=== PATIENT | male | born 1965 | race American Indian/Alaskan Native ===

== ENCOUNTER 2020-03-07 08:18 | Observation (INO) | payer OTHER ==
[2020-03-07] VITALS (19 sets, daily range): BP systolic 126–161; BP diastolic 78–101
[~2020-03-07] VITALS: Ht 172.7 cm; Wt 92.7 kg
[~2020-03-07 08:18] MED LIST: ATRIN INH; CHOL20004 PO; FLO0.4C PO; LEVA15HF4 INH; LISI-600 PO; MELO-102 PO; MIRT15TA PO; MOME13HF2 INH; MULT-1085 PO; ceFAZolin 2gm in dextrose, iso 50 ML IV ONE; famotidine 20mg tablet PO ONE; ringers solution, lacted 1,000 ML IV SCH; tranexamic acid inj. 1,000 MG in normal saline 100 ML IV ONE; vancomycin 1,500 MG in NS 300ml IV soln IV ONE
[2020-03-07] MEDS ORDERED: labetalol 20mg/4ml (5mg/ml) syringe IV PRN (12:00)
[2020-03-07] MEDS ORDERED: ringers solution, lacted 1,000 ML IV SCH (12:00)
[2020-03-07] MEDS ORDERED: fentaNYL/PF 50MCG/1 ML 2ML syringe IV PRN (12:00)
[2020-03-07] MEDS ORDERED: hydrALAZINE 20mg/ml inj. IV PRN (12:00)
[2020-03-07] MEDS ORDERED: ondansetron/PF 4mg/2ml inj IV PRN ×2 (12:00→14:45)
[2020-03-07] MEDS ORDERED: ROPIVAcaine 0.2% (10 MG/5 ML) BOLUS INJECTION ADDCANAL PRN (12:00)
[2020-03-07] MEDS ORDERED: morphine 2 MG/ML inj. syringe IV PRN (12:00)
[2020-03-07] MEDS ORDERED: ketorolac trometh. 30mg/ml inj. ONE (12:53)
[2020-03-07] MEDS ORDERED: epiNEPHrine 1 mg/ml inj ONE (12:53)
[2020-03-07] MEDS ORDERED: morphine 4 MG/ML inj SYRINge ONE (12:54)
[2020-03-07] MEDS ORDERED: vancomycin 1,000mg inj ONE (12:54)
[2020-03-07] MEDS ORDERED: ROPIVAcaine 0.5% (5mg/ml) 30ml vial ONE ×2 (12:54→14:15)
[2020-03-07] MEDS ORDERED: morphine 10mg/ml inj. ONE ×2 (12:56→12:57)
[2020-03-07] MEDS ORDERED: MIDAZolam 5mg/5ml vial ONE (13:00)
[2020-03-07] MEDS ORDERED: fentaNYL /PF 50mcg/ml 5ml ampule ONE (13:00)
[2020-03-07] MEDS ORDERED: propofol inj 20 ML IV ONE (13:01)
[2020-03-07] MEDS ORDERED: LIDOcaine 2% (20mg/ml) 5ml vial ONE (13:01)
[2020-03-07] MEDS ORDERED: dexamethasone sod phosphate 10mg/ml inj ONE (13:14)
[2020-03-07] MEDS ORDERED: sevoflurane 250ml liquid IH ONE (13:14)
[2020-03-07] MEDS ORDERED: ondansetron/PF 4mg/2ml inj ONE (13:27)
[2020-03-07] MEDS ORDERED: magnesium hydroxide 30ml (MOM) UD suspension PO PRN (14:45)
[2020-03-07] MEDS ORDERED: acetaminophen 325mg tablet PO PRN (14:45)
[2020-03-07] MEDS ORDERED: diphenhydrAMINE 25mg capsule PO PRN ×2 (14:45)
[2020-03-07] MEDS ORDERED: bisacodyl 10mg suppository rectal RC PRN (14:45)
[2020-03-07] MEDS ORDERED: HYDROmorphone inj. 0.5 MG/0.5 ML DISP.SYRIN IV PRN (14:45)
[2020-03-07] MEDS ORDERED: oxyCODONE IR 5mg (immed. release) tablet PO PRN (14:45)
--- NOTE | 2020-03-07 15:19 | NUR ---
RECEIVED FROM OR VIA BED WITH OHTF ACCOMPANIED BY ANESTHESIOLOGIST DR ROSADO, REPORT GIVEN. PT AWAKE AND ALERT, CRYING AND STATING PAIN LEVEL AT A 10, MORPHINE GIVEN. 18 GAUGE PIV L HAND PATENT AND RUNNING LR AT 100 ML/HR. RIGHT KNEE DRESSING OF ACTICOTE, JARRELL, KNEE WRAP AND POWDER PACK CDI. GOOD PERIPHERAL PULSES, GOOD CAP REFILL, SKIN PINK AND WARM, ABD SOFT.
[2020-03-07] MEDS: morphine 4 MG/ML inj SYRINge IV PRN ×2 (15:25→15:34)
[2020-03-07] MEDS: ROPIVAcaine 0.2%/PF PUMP/bolus 550 ML ADDCANAL SCH (15:40)
[2020-03-07] MEDS: fentaNYL/PF 50MCG/1 ML 2ML syringe IV PRN ×2 (15:52→16:05)
--- NOTE | 2020-03-07 16:39 | NUR ---
TRANSFERRED TO [facility]THO FLOOR VIA BED WITH OHTF ACCOMPANIED BY MYSELF AND TWO OFFICERS, REPORT GIVEN. PT AWAKE AND ALERT, VSS. 18 GAUGE PIV L HAND PATENT AND RUNNING LR AT 100 ML/HR. RIGHT KNEE DRESSING OF ACTICOTE, JARRELL, KNEE WRAP AND POWDER PACK CDI. GOOD PERIPHERAL PULSES, GOOD CAP REFILL, SKIN PINK AND WARM, ABD SOFT. JUST STARTING TO TAKE ICE CHIPS.
[2020-03-07] MEDS ORDERED: ipratropium 0.5 MG/2.5ML nebule IH PRN (17:00)
[2020-03-07] MEDS: potassium cl 20mEq in 1/2 NS 1,000 ML IV SCH (17:42)
[2020-03-07] MEDS: ceFAZolin 1GM/D5W- ADD-VANTAGE 50 ML IV SCH ×2 (17:42→23:29)
[2020-03-07] MEDS: oxyCODONE IR 5mg (immed. release) tablet PO PRN ×2 (17:42→23:30)
[2020-03-07] MEDS ORDERED: NORMAL SALINE IV ONE (17:45)
[2020-03-07] MEDS ORDERED: TRANEXAMIC ACID IV ONE (17:45)
--- NOTE | 2020-03-07 18:05 | NUR ---
Patient in room [facility]TH[facility] 4008. I have received report from ARCENIO Gonzales and had the opportunity to ask questions and assume patient care.
[2020-03-07] MEDS ORDERED: vancomycin/NS 1 GM ADD-VANTAGE 250 ML IV SCH (20:00)
[2020-03-07] MEDS ORDERED: levalbuterol 1.25mg/0.5ml nebule IH PRN (20:00)
[2020-03-07] MEDS: HYDROmorphone 1 mg/ml syringe IV PRN (20:36)
[2020-03-07] MEDS: acetaminophen 325mg tablet PO SCH (20:37)
[2020-03-07] MEDS: gabapentin 300mg capsule PO SCH (20:37)
[2020-03-07] MEDS ORDERED: sennosides 8.6mg tablet PO SCH (21:00)
[2020-03-07] MEDS ORDERED: mirtazapine 15mg tablet PO SCH (21:00)
[2020-03-07] MEDS: budesonide 0.5mg/2ml UD nebule IH SCH (21:02)
[2020-03-08 02:00] VITALS: BP 113/75
[2020-03-08] MEDS: acetaminophen 325mg tablet PO SCH ×4 (02:23→14:42)
[2020-03-08] MEDS: HYDROmorphone 1 mg/ml syringe IV PRN (02:24)
[2020-03-08] MEDS: potassium cl 20mEq in 1/2 NS 1,000 ML IV SCH ×3 (04:03→14:42)
[2020-03-08] MEDS: ROPIVAcaine 0.2%/PF PUMP/bolus 550 ML ADDCANAL SCH (04:09)
[2020-03-08] MEDS: oxyCODONE IR 5mg (immed. release) tablet PO PRN ×4 (05:26→18:34)
[2020-03-08 06:00] VITALS: BP 111/69
[2020-03-08] MEDS ORDERED: HYDR-4353 PO (06:15)
[2020-03-08] MEDS ORDERED: ASPI-1 PO (06:15)
[2020-03-08 06:29] LABS: ANION GAP 7 (8-16); CHLORIDE 106 MMOL/L (99-107); POTASSIUM 4.7 MMOL/L (3.5-5.1); SODIUM 138 MMOL/L (135-145); TOTAL CARBON DIOXIDE 25.1 MMOL/L (24-32)
--- NOTE | 2020-03-08 06:29 | NUR ---
Problems reprioritized. Patient report given, questions answered & plan of care reviewed with ARCENIO Ash.
[2020-03-08 06:30] LABS: BASOPHILS % (AUTO) 0 % (0-1); EOSINOPHILS % (AUTO) 0 % (0-6); HEMATOCRIT 38.8 % (42.0-52.0); HEMOGLOBIN 12.8 g/dl (14.0-17.9); LYMPHOCYTES # (AUTO) 1.1 X10'3 (1.1-4.8); LYMPHOCYTES % (AUTO) 8.5 % (21-51); MEAN CORPUSCULAR HEMOGLOBIN 31.6 PG (27.0-31.0); MEAN CORPUSCULAR HGB CONC 32.9 g/dL (33.0-36.5); MEAN CORPUSCULAR VOLUME 96.2 FL (78-98); MEAN PLATELET VOLUME 8.3 FL (7.4-10.4); MONOCYTES # (AUTO) 0.7 X10'3 (0-0.9); MONOCYTES % (AUTO) 5.4 % (2-12); NEUTROPHILS % (AUTO) 86.1 % (42-75); PLATELET COUNT 181 X10'3 (140-440); RED BLOOD COUNT 4.04 X10'6 (4.70-6.10); RED CELL DISTRIBUTION WIDTH 13.7 % (11.5-14.5); WHITE BLOOD COUNT 12.8 X10'3 (4.5-11.0)
--- NOTE | 2020-03-08 06:30 | NUR ---
Patient in room [facility]TH[facility] 4008. I have received report from Fani and had the opportunity to ask questions and assume patient care.
[2020-03-08] MEDS: gabapentin 300mg capsule PO SCH ×2 (07:53→14:42)
[2020-03-08] MEDS ORDERED: lisinopril 20mg tablet PO SCH (08:00)
[2020-03-08] MEDS: budesonide 0.5mg/2ml UD nebule IH SCH (08:00)
[2020-03-08] MEDS ORDERED: multivitamins, therapeutics tablet PO SCH (08:00)
[2020-03-08] MEDS ORDERED: vitamin D (cholecalciferol) 1,000 unit tablet PO SCH (08:00)
[2020-03-08] MEDS ORDERED: tamsulosin 0.4mg capsule PO SCH (08:00)
[2020-03-08] MEDS ORDERED: aspirin 325mg tablet PO SCH (08:30)
--- NOTE | 2020-03-08 09:48 | NUR ---
corticosteroid not given rt in er Addendum: 03/08/20 at 0949 by Vicki Lemos RT Amended: Links added.
[2020-03-08 10:00] VITALS: BP 107/69
[2020-03-08 14:00] VITALS: BP 115/69
--- NOTE | 2020-03-08 17:45 | NUR ---
Joint Replacement consult: Pt seen by SALLY for written/verbal high protein ed w/ RD contact information provided. Pt reports discharging following dinner; is agreeable to double meats at dinner tonight. Dietary notified. Addendum: 03/08/20 at [address] Amended: Links added.
--- NOTE | 2020-03-08 18:41 | NUR ---
Reviewed discharge instructions with pt and guards. Pt verbalized understanding. Guards are with pt and will be transporting [facility].
[2020-03-08] MEDS ORDERED: celeCOXIB 100mg capsule PO SCH (20:00)
[2020-03-09] MEDS ORDERED: acetaminophen 325mg tablet PO PRN (14:45)
== END 2020-03-08 18:45 ==
LOC: INTOOBSV 08:18 → PAS IN 08:18 → EDSTATUS 10:45 → EEVIPCON 14:45 → ORTHO 4S 16:35
PROVIDERS: ADMIT Orthopaedic Surgery; ATTEND Orthopaedic Surgery
DX: M17.11 Unilateral primary osteoarthritis, right knee (principal); I10 Essential (primary) hypertension; F32.9 Major depressive disorder, single episode, unspecified; J45.909 Unspecified asthma, uncomplicated; N40.0 Benign prostatic hyperplasia without lower urinary tract symptoms; D62 Acute posthemorrhagic anemia; Z79.51 Long term (current) use of inhaled steroids; Z79.899 Other long term (current) drug therapy
CPT/HCPCS: 27447; 36415; 73560; 80051; 82948; 85025; 94640; 94760; 96365; 96366; 96367; 96375; 96376; 97110; 97116; 97162; A6454; C1713; C1776; C9250; G0378; J0171; J0690; J1100; J1170; J1885; J2001; J2250; J2270; J2405; J2704; J2795; J3010; J3370; J7040; J7120; A4215; A7000; J3480; J7626